=== PATIENT | female | born 1955 | race Caucasian/White ===

== ENCOUNTER 2021-05-18 12:32 | Emergency (ER) | payer BC ==
[~2021-05-18] VITALS: Ht 152.4 cm; Wt 104.3 kg
[2021-05-18 13:59] LABS: CLARITY,URINE CLEAR (CLEAR); COLOR,URINE YELLOW (YELLOW); KETONES,URINE NEGATIVE (NEGATIVE); LEUKOCYTE ESTERASE ,URINE NEGATIVE (NEGATIVE); NITRITE,URINE POSITIVE (NEGATIVE); PROTEIN,URINE DIPSTICK NEGATIVE (NEGATIVE); URINE UROBILINOGEN 1 mg/dL (0.2 - 1)
[2021-05-18 14:06] LABS: BACTERIA,URINE RARE /HPF; EPITHELIAL CELLS,URINE FEW /LPF; RBC,URINE 0-5 /HPF (0-5)
[2021-05-18] MEDS ORDERED: CEFDINIR 300 MG CAP PO ONE (15:00)
[2021-05-18] MEDS ORDERED: CEFDINIR300 MG PO (15:17)
== END 2021-05-18 15:45 | disposition home or self-care (01) ==
LOC: ER 12:40
DX: R10.30 Lower abdominal pain, unspecified (principal); N30.90 Cystitis, unspecified without hematuria; R53.81 Other malaise; Z20.822 Contact with and (suspected) exposure to COVID-19
CPT/HCPCS: 36415; 81001; 82948; 87086; 99283; U0002